=== PATIENT | female | born 1985 | race Caucasian/White ===

== ENCOUNTER 2023-09-15 13:22 | Emergency (ER) | payer MEDICAID ==
[~2023-09-15] VITALS: Ht 170.2 cm; Wt 90.7 kg
[2023-09-15 15:15] VITALS: BP_SYST 138; PULSE 83; RESP 18; TEMP 98.3; O2SAT 97
[2023-09-15] MEDS ORDERED: HYDR-3917 PO (17:09)
[2023-09-15] MEDS ORDERED: IBUP-1969 PO (17:09)
[2023-09-15] MEDS: KETOROLAC TROMETHAMINE 60 MG/2 ML VIAL IM ONE (17:22)
[2023-09-15 18:04] VITALS: BP_SYST 138; PULSE 83; RESP 18; TEMP 98.3; O2SAT 97
== END 2023-09-15 17:22 | disposition home or self-care (01) ==
LOC: SED 13:22
DX: S83.92XA Sprain of unspecified site of left knee, initial encounter (principal); Z79.899 Other long term (current) drug therapy; W01.0XXA Fall on same level from slipping, tripping and stumbling without subsequent striking against object, initial encounter; Y93.89 Activity, other specified; Y92.89 Other specified places as the place of occurrence of the external cause; Y99.8 Other external cause status
CPT/HCPCS: 99283; 29505; 73564; 96372; J1885